=== PATIENT | male | born 1955 ===

== ENCOUNTER 2017-05-13 13:40 | Emergency (ER) | payer OTHER ==
[2017-05-13 14:05] VITALS: TEMP 97.9; O2SAT 96
[2017-05-13] MEDS ORDERED: Sodium Chloride 0.9% 1,000 ML IV ONE (14:12)
[2017-05-13] MEDS ORDERED: Iohexol 240 (50 ml) PO STA (14:12)
--- NOTE | 2017-05-13 14:22 | C.PDOC ---
History Of Present Illness 61 y/o male with Hx of HTN, Gastritis and pancreatitis presents to ED with complaints of epigastric abdominal pain for 1 week with associated nausea and 1 episode of vomiting "couple of days ago". Patient reports epigastric pain radiating to back and is constant with associated profuse watery diarrhea for which he has taken Kaeopectate with no improvement. Patient denies blood in stool, fever, chills , bladder incontinence or any other complaints at this time. Time Seen by Provider: 05/13/17 14:04 Chief Complaint (Nursing): Abdominal Pain History Per: Patient History/Exam Limitations: no limitations Onset/Duration Of Symptoms: Days Current Symptoms Are (Timing): Still Present Location Of Pain/Discomfort: Epigastric Past Medical History Reviewed: Historical Data, Nursing Documentation, Vital Signs Vital Signs: Last Vital Signs Temp 97.9 F 05/13/17 13:55 Pulse 100 H 05/13/17 13:55 Resp 16 05/13/17 13:55 BP 110/72 05/13/17 13:55 Pulse Ox 96 05/13/17 14:25 - Medical History PMH: HTN, Pancreatitis Surgical History: Appendectomy Family History: States: No Known Family Hx - Social History Hx Alcohol Use: No Hx Substance Use: No - Immunization History Hx Influenza Vaccination: No Review Of Systems Except As Marked, All Systems Reviewed And Found Negative. Constitutional: Negative for: Fever, Chills Gastrointestinal: Positive for: Nausea, Vomiting, Abdominal Pain, Diarrhea Genitourinary: Negative for: Dysuria, Frequency, Incontinence Musculoskeletal: Positive for: Back Pain Skin: Negative for: Rash Physical Exam - Physical Exam Appears: Non-toxic, No Acute Distress Skin: Normal Color, Warm, No Rash Head: Atraumatic Oral Mucosa: Moist Chest: Symmetrical Cardiovascular: Rhythm Regular Respiratory: Normal Breath Sounds, No Rales, No Rhonchi, No Wheezing Gastrointestinal/Abdominal: Bowel Sounds (Quiet), Tenderness (Epigastrium), No Guarding, No Rebound Pulses: Left Radial: Normal, Right Radial: Normal Neurological/Psych: Oriented x3, Normal Speech Gait: Steady ED Course And Treatment - Laboratory Results Result Diagrams: 05/13/17 14:55 05/13/17 14:55 Lab Interpretation: No Acute Changes O2 Sat by Pulse Oximetry: 96 (RA) Pulse Ox Interpretation: Normal - CT Scan/US CT Abdomen and Pelvis Other Rad Studies (CT/US): Read By Radiologist, Radiology Report Reviewed CT/US Interpretation: Creator : Alyssa Kim MD. Dictator : School Childcare Attendant : Station Baggage Porter : Alyssa Kim MD. Approver2 : Report Date : 05/13/2017 17:40:49. My Comment : . PROCEDURE: CT Abdomen and Pelvis with oral and IV contrast. HISTORY: abd pain. COMPARISON: None available. TECHNIQUE: Contiguous axial images of the abdomen and pelvis. Oral and IV contrast was administered. Coronal and Sagittal reformats generated and reviewed. Contrast dose: 100 cc Omnipaque 300. Radiation dose: Total exam DLP = 648.88 mGy-cm. This CT exam was performed using one or more of the following dose reduction techniques: Automated exposure control, adjustment of the mA and/or kV according to patient size, and/or use of iterative reconstruction technique. FINDINGS: LOWER THORAX: No visible consolidation, pleural effusion, or pneumothorax. Distal esophageal wall thickening/small hiatal hernia. Gastroesophageal reflux. LIVER: Hypoattenuation of the liver compatible with hepatic steatosis. GALLBLADDER AND BILE DUCTS: Unremarkable. PANCREAS: Coarse pancreatic calcifications. Dilated ectatic pancreatic duct. Correlate clinically for chronic pancreatitis. SPLEEN: Unremarkable. ADRENALS : Unremarkable. KIDNEYS AND URETERS: The kidneys enhance symmetrically. No hydronephrosis or obstructing renal calculus. 19 mm low-density lesion, right mid to lower pole, possibly cyst. BLADDER: The urinary bladder appears unremarkable. REPRODUCTIVE: The prostate gland measures approximately 5.4 x 5.6 cm. APPENDIX: Not visualized. BOWEL: The stomach is nondistended. The bowel loops appear within normal limits of caliber without evidence of intestinal obstruction. Wall thickening of the right colon ; correlate clinically for colitis. PERITONEUM: No significant free fluid. No definite free air. LYMPH NODES: Sub cm pericecal lymph nodes, nonspecific. VASCULATURE : No aortic aneurysm. BONES: Degenerative changes. OTHER FINDINGS: Partially imaged left-sided gynecomastia. IMPRESSION: The appendix is not identified. Colonic wall thickening of the right colon. Adjacent prominent but sub cm lymph nodes. Appearance suspected secondary to colitis. Correlate clinically. Coarse pancreatic calcifications. Dilated ectatic pancreatic duct. Correlate clinically for chronic pancreatitis. Enlarged prostate gland. Recommend correlation with PSA. Hepatic steatosis. 19 mm low-density renal lesion, right mid to lower pole, possibly cyst. Distal esophageal wall thickening/small hiatal hernia. Gastroesophageal reflux. Partially imaged left- sided gynecomastia. Reevaluation Time: 18:05 Reassessment Condition: Improved Disposition - Disposition Referrals: [facility] [Outside] Roman Pinto MD [Staff Provider] - Disposition: HOME/ ROUTINE Disposition Time: 18:16 Condition: IMPROVED Instructions: Colitis (ED) Forms: [employer] (Bulgarian) Print Language: CITIZ[place] - Clinical Impression Clinical Impression: Colitis - Scribe Statement The provider has reviewed the documentation as recorded by the Katherine Hansen All medical record entries made by the Katherine were at my direction and personally dictated by me. I have reviewed the chart and agree that the record accurately reflects my personal performance of the history, physical exam, medical decision making, and the department course for this patient. I have also personally directed, reviewed, and agree with the discharge instructions and disposition.
[2017-05-13] MEDS ORDERED: Iohexol 240 (50 ml) ONE (14:56)
[2017-05-13] MEDS ORDERED: Sodium Chloride 0.9% 1,000 ML ONE (14:56)
[2017-05-13 14:59] LABS: BASO # 0.1 K/uL (0.0-0.2); BASO % 0.9 % (0.0-2.0); EOS # 0.3 K/uL (0.0-0.7); EOS % 2.7 % (0.0-4.0); HEMATOCRIT 40.6 % (35.0-51.0); LYMPH # 2.5 K/uL (1.0-4.3); LYMPH % 25.3 % (20.0-40.0); MEAN CORPUSCULAR HEMOGLOBIN 31.1 pg (27.0-31.0); MEAN CORPUSCULAR HGB CONC 34.5 g/dL (33.0-37.0); MEAN PLATELET VOLUME 9.8 fL (7.2-11.7); MONO % 9.5 % (0.0-10.0); NRBC % 0.1 % (0.0-2.0); WHITE BLOOD COUNT 10.1 K/uL (4.8-10.8)
[2017-05-13 15:13] LABS: CHLORIDE 96 mmol/L (98-107)
[2017-05-13 15:14] LABS: POTASSIUM 3.9 mmol/L (3.6-5.2); SODIUM 135 mmol/L (132-148)
[2017-05-13 15:16] LABS: ALB/GLOB RATIO 1.3 (1.0-2.1); ALKALINE PHOSPHATASE 59 U/L (38-126); AST/SGOT 26 U/L (17-59); BILIRUBIN,TOTAL 0.5 mg/dL (0.2-1.3); BLOOD UREA NITROGEN 12 mg/dL (9-20); CARBON DIOXIDE 28 mmol/L (22-30); GFR AFRICAN-AMERICAN > 60; TOTAL PROTEIN 7.5 g/dL (6.3-8.3)
[2017-05-13 15:17] LABS: ALT/SGPT 30 U/L (21-72); CALCIUM 9.2 mg/dl (8.6-10.4); GLUCOSE,RANDOM 109 mg/dL (75-110)
[2017-05-13] MEDS ORDERED: Iohexol 300 100 ML IJ ONE (16:08)
--- NOTE | 2017-05-13 17:43 | CT ---
PROCEDURE: CT Abdomen and Pelvis with oral and IV contrast. HISTORY: abd pain COMPARISON: None available TECHNIQUE: Contiguous axial images of the abdomen and pelvis. Oral and IV contrast was administered. Coronal and Sagittal reformats generated and reviewed. Contrast dose: 100 cc Omnipaque 300 Radiation dose: Total exam DLP = 648.88 mGy-cm. This CT exam was performed using one or more of the following dose reduction techniques: Automated exposure control, adjustment of the mA and/or kV according to patient size, and/or use of iterative reconstruction technique. FINDINGS: LOWER THORAX: No visible consolidation, pleural effusion, or pneumothorax. Distal esophageal wall thickening/small hiatal hernia. Gastroesophageal reflux. LIVER: Hypoattenuation of the liver compatible with hepatic steatosis. GALLBLADDER AND BILE DUCTS: Unremarkable. PANCREAS: Coarse pancreatic calcifications. Dilated ectatic pancreatic duct. Correlate clinically for chronic pancreatitis. SPLEEN: Unremarkable. ADRENALS: Unremarkable. KIDNEYS AND URETERS: The kidneys enhance symmetrically. No hydronephrosis or obstructing renal calculus. 19 mm low-density lesion, right mid to lower pole, possibly cyst. BLADDER: The urinary bladder appears unremarkable. REPRODUCTIVE: The prostate gland measures approximately 5.4 x 5.6 cm. APPENDIX: Not visualized. BOWEL: The stomach is nondistended. The bowel loops appear within normal limits of caliber without evidence of intestinal obstruction. Wall thickening of the right colon ; correlate clinically for colitis. PERITONEUM: No significant free fluid. No definite free air. LYMPH NODES: Sub cm pericecal lymph nodes, nonspecific. VASCULATURE: No aortic aneurysm. BONES: Degenerative changes. OTHER FINDINGS: Partially imaged left-sided gynecomastia. IMPRESSION: The appendix is not identified. Colonic wall thickening of the right colon. Adjacent prominent but sub cm lymph nodes. Appearance suspected secondary to colitis. Correlate clinically. Coarse pancreatic calcifications. Dilated ectatic pancreatic duct. Correlate clinically for chronic pancreatitis. Enlarged prostate gland. Recommend correlation with PSA. Hepatic steatosis. 19 mm low-density renal lesion, right mid to lower pole, possibly cyst. Distal esophageal wall thickening/small hiatal hernia. Gastroesophageal reflux. Partially imaged left-sided gynecomastia.
[2017-05-13 18:29] VITALS: BP 124/85; PULSE 79; RESP 18
== END 2017-05-13 18:29 | disposition home or self-care (01) ==
LOC: C.ER 13:40
DX: K52.9 Noninfective gastroenteritis and colitis, unspecified (principal)
CPT/HCPCS: 74177; 80053; 83690; 85025; 96361; 96374; 96375; 99284; J2405; J7040; Q9966; Q9967